=== PATIENT | female | born 1975 | race African-American/Black ===

== ENCOUNTER 2019-07-15 05:26 | Emergency (ER) | payer OTHER ==
[~2019-07-15] VITALS: Ht 165.1 cm; Wt 59.0 kg
[2019-07-15 06:04] LABS: URINE BILIRUBIN NEGATIVE (Negative); URINE BLOOD NEGATIVE (Negative); URINE CLARITY SL CLOUDY; URINE COLOR YELLOW; URINE GLUCOSE-RANDOM* NEGATIVE (Negative); URINE KETONES NEGATIVE (Negative); URINE LEUKOCYTES-REFLEX NEGATIVE (Negative); URINE NITRITE-REFLEX NEGATIVE (Negative); URINE PROTEIN (DIPSTICK) NEGATIVE (Negative); URINE SPECIFIC GRAVITY 1.015 (1.005-1.035); URINE UROBILINOGEN 0.2 E.U./dl (0.2-1.0)
[2019-07-15 06:11] LABS: ABSOLUTE NEUTROPHILS 9.1 thou/uL (1.4-8.2); BASOPHILS 0.6 % (0.0-2.0); EOSINOPHILS 0.3 % (0.0-3.0); HEMOGLOBIN 13.2 gm/dL (12.0-15.0); LYMPHOCYTES 9.7 % (24.0-44.0); MCH 31.3 pg (26.0-34.0); MCHC 33.9 g/dL (28.0-37.0); MCV 92.3 fL (80.0-100.0); MONOCYTES 4.6 % (1.0-8.0); PLATELET COUNT 309 thou/uL (150-400); POLYS 84.8 % (36.0-66.0); RBC 4.23 mil/uL (4.20-5.00); RDW 13.7 % (10.5-14.5); WBC 10.7 thou/uL (4.0-11.0)
[2019-07-15 06:20] LABS: CALCIUM 8.9 mg/dL (8.5-10.1); CREATININE 0.7 mg/dL (0.6-1.0); POTASSIUM 3.3 mmol/L (3.5-5.1)
[2019-07-15 06:26] LABS: ALBUMIN 3.9 g/dL (3.4-5.0); TOTAL BILIRUBIN 0.3 mg/dL (<0.1-1.0)
[2019-07-15 06:26] LABS: SSA (PROTEIN CONFIRMATORY) NEGATIVE (Negative)
[2019-07-15] MEDS ORDERED: OXYCODONE HCL 55 MG PO (10:49)
[2019-07-15] MEDS ORDERED: ULTRAM 50MG TAB50 MG PO (10:49)
[2019-07-15] MEDS ORDERED: ZOFRAN ODT4 MG PO (11:00)
[2019-07-15 11:35] VITALS: BP 122/76
[2019-07-16 13:46] LABS: ALPHA FETOPROTEIN-TUMOR* 2.3 ng/mL (0.0-8.3); CA 125 21.8 U/mL (0.0-38.1)
[2019-07-17 09:10] LABS: CEA 2.7 ng/mL (0.0-4.7)
== END 2019-07-15 11:36 | disposition home or self-care (01) ==
LOC: ER 05:26
PROVIDERS: Emergency Medicine
DX: N83.202 Unspecified ovarian cyst, left side (principal); F17.210 Nicotine dependence, cigarettes, uncomplicated